=== PATIENT | male | born 1990 | race Two or more races ===

== ENCOUNTER 2024-06-02 14:59 | Emergency (ER) | payer MEDICAID, OTHER ==
[~2024-06-02] VITALS: Ht 154.9 cm; Wt 118.1 kg
[2024-06-02 16:25] VITALS: BP 140/98; PULSE 104; RESP 18; TEMP 98; O2SAT 98
== END 2024-06-02 17:34 | disposition home or self-care (01) ==
LOC: ER 14:59
DX: M77.52 Other enthesopathy of left foot and ankle (principal); Z88.2 Allergy status to sulfonamides; Z88.6 Allergy status to analgesic agent
CPT/HCPCS: 73610

== ENCOUNTER 2024-06-04 09:18 | Emergency (ER) | payer MEDICAID ==
[~2024-06-04] VITALS: Ht 177.8 cm; Wt 118.2 kg
[2024-06-04 09:51] VITALS: BP 132/82; PULSE 88; RESP 18; TEMP 97.9; O2SAT 98
== END 2024-06-04 10:37 | disposition home or self-care (01) ==
LOC: ER 09:18
DX: M23.92 Unspecified internal derangement of left knee (principal); Z88.2 Allergy status to sulfonamides; Z88.6 Allergy status to analgesic agent
CPT/HCPCS: 73562